=== PATIENT | male | born 1980 | race Caucasian/White ===

== ENCOUNTER 2020-05-07 08:58 | Emergency (ER) | payer OTHER, SELFPAY ==
[2020-05-07 09:00] VITALS: BP 161/114; PULSE 98; RESP 14; TEMP 36.6; O2SAT 99; BMI 33.3
--- NOTE | 2020-05-07 09:26 | EKG12_ITS ---
Test Reason : [facility] Blood Pressure : / mmHG Vent. Rate : 081 BPM Atrial Rate : 081 BPM P-R Int : 168 ms QRS Dur : 092 ms QT Int : 348 ms P-R-T Axes : 047 038 028 degrees QTc Int : 404 ms Normal sinus rhythm Normal ECG Confirmed by BRIGHT KEYES, CAMRYN ([id number]), managing editor JEFF MENDOZA ([id number]) on 05/08/2020 1:38:15 PM Referred By: Confirmed By:CAMRYN NOVOA MD
--- NOTE | 2020-05-07 09:26 | ED.VIS.GEN ---
History of Present Illness Chief Complaint: Suicidal Informant: Patient Narrative: 39-year-old male presenting with suicidal ideation. Patient is a [place] [employer] . Patient states for the past 5 to 6 years he has been battling with his thoughts and of how to improve himself in his situation. He has had prior methamphetamine addiction that was strong for 2 years but over the past year has been intermittent. Last used 1 month ago. He is on through several break ups the last break-up he had a child with the individual. He is struggling with the role of a father. [facility] They eventually convinced him to come to the hospital. He is worried about being labeled. He states he had a bad childhood and feels that he has been running from every situation. He does not know where to start. Past Medical History - Allergies and Home Meds Allergies/Adverse Reactions: Allergies No Known Allergies Allergy (Verified 05/07/20 09:00) Surgical History: noncontributory Lives: Friends Smoking Status: Current every day smoker Alcohol: Occasional Drugs: - - History of methamphetamine use Review of Systems General: Denies: Chills, Fever, Sweats Eyes: Denies: Visual changes - bilaterally, Diplopia ENT: Denies: Rhinorrhea, Sore throat Cardiovascular: Denies: Chest pain, Palpitations Respiratory: Denies: Dyspnea, Cough, Dyspnea on exertion Gastrointestinal: Denies: Abdominal pain, Nausea, Vomiting, Diarrhea, Melena, Hematochezia Genitourinary: Denies: Dysuria, Hematuria, Frequency Musculoskeletal: Denies: Back pain, Extremity Pain Skin: Denies: Rash, Wounds Neurological: Denies: Headache, Weakness, Numbness Psych: Reports: Depression, Anxiety, Suicidal thoughts, Suicidal ideations Physical Exam Vital Signs/Narrative: Vital Signs Temp Pulse Resp BP Pulse Ox 05/07/20 09:00 97.8 F 98 14 161/114 H 99 Inital Vital Signs reviewed: Yes General: Well nourished, Well developed, No Acute Distress Head: Normocephalic, Atraumatic Eyes: Perrl, EOMI ENT: Moist mucous membranes, No rhinorrhea Neck: Supple, Nontender Cardiovascular: Regular rate, Regular rhythm, No murmurs Respiratory: No distress, CTA bilaterally, Chest nontender Abdomen: Soft, Nontender, Nondistended, Normal bowel sounds Back: Nontender, Normal Inspection Extremities: Nontender, No edema Skin: Normal color, No rash Neurological: Alert, Oriented x3, Cranial nerves II-XII grossly intact, Normal Strength, Normal Sensation Psychological: Depressed, Tearful, - - Patient endorses suicidal thoughts and ideation Diagnostic/Tx/Re-eval Laboratory Last Values WBC 11.0 K/mm3 (4.4-11.0) 05/07/20 09:46 RBC 5.65 M/mm3 (4.6-6.2) 05/07/20 09:46 Hgb 16.6 g/dL (13.0-16.5) H 05/07/20 09:46 Hct 48.7 % (40-54) 05/07/20 09:46 MCV 86.2 fL (80-94) 05/07/20 09:46 MCH 29.4 pg (27.0-32.0) 05/07/20 09:46 MCHC 34.1 g/dL (32-36) 05/07/20 09:46 RDW Std Deviation 40.5 fl (35.1-43.9) 05/07/20 09:46 RDW Coeff of Derik 13.1 % (11.6-14.6) 05/07/20 09:46 Plt Count 220 K/mm3 (150-450) 05/07/20 09:46 MPV 10.0 fl (6.2-12.0) 05/07/20 09:46 Immature Gran % (Auto) 0.500 % (0.0-0.9) 05/07/20 09:46 Neut % (Auto) 76.7 % (47-70) H 05/07/20 09:46 Lymph % (Auto) 16.3 % (19-41) L 05/07/20 09:46 [place] % (Auto) 5.0 % (0-10) 05/07/20 09:46 Eos % (Auto) 1.2 % (0-5) 05/07/20 09:46 Baso % (Auto) 0.3 % (0-1) 05/07/20 09:46 Absolute Neuts (auto) 8.4 X10^3/uL (2.0-7.7) H 05/07/20 09:46 Absolute Lymphs (auto) 1.78 X10^3/uL (0.83-4.51) 05/07/20 09:46 Nucleated RBC % 0 % (0-5) 05/07/20 09:46 Sodium 140 mmol/L (136-145) 05/07/20 09:46 Potassium 3.7 mmol/L (3.5-5.1) 05/07/20 09:46 Chloride 107 mmol/L (98-107) 05/07/20 09:46 Carbon Dioxide 24.0 mmol/L (21.0-32.0) 05/07/20 09:46 Anion Gap 9 (5-15) 05/07/20 09:46 BUN 13 mg/dL (7-18) 05/07/20 09:46 Creatinine 1.00 mg/dL (0.70-1.30) 05/07/20 09:46 Estim Creat Clear Calc 97.85 ml/min 05/07/20 09:46 Est GFR (MDRD) Af Amer 108 mL/min (>60) 05/07/20 09:46 Est GFR (MDRD) Non-Af 89 mL/min (>60) 05/07/20 09:46 BUN/Creatinine Ratio 13.0 RATIO (10-20) 05/07/20 09:46 Glucose 89 mg/dL (74-106) 05/07/20 09:46 Calcium 9.9 mg/dL (8.5-10.1) 05/07/20 09:46 Total Bilirubin 0.90 mg/dL (0.20-1.00) 05/07/20 09:46 AST 27 U/L (15-37) 05/07/20 09:46 ALT 46 U/L (16-61) 05/07/20 09:46 Alkaline Phosphatase 87 U/L (45-117) 05/07/20 09:46 Total Protein 8.6 g/dL (6.4-8.2) H 05/07/20 09:46 Albumin 4.3 g/dL (3.2-5.0) 05/07/20 09:46 Globulin 4.3 g/dL (2.2-4.2) H 05/07/20 09:46 Albumin/Globulin Ratio 1.0 RATIO (0.9-2.4) 05/07/20 09:46 TSH 0.85 uIU/mL (0.358-3.74) 05/07/20 09:46 Urine Opiates Screen NEGATIVE (< 300 ng/mL) 05/07/20 11:28 Urine Methadone Screen NEGATIVE (< 300 ng/mL) 05/07/20 11:28 Ur Barbiturates Screen NEGATIVE (< 200 ng/mL) 05/07/20 11:28 Ur Phencyclidine Scrn NEGATIVE (< 25 ng/mL) 05/07/20 11:28 Ur Amphetamines Screen NEGATIVE (<1000 ng/mL) 05/07/20 11:28 U Methamphetamin-MDMA NEGATIVE (< 500 ng/mL) 05/07/20 11:28 U Benzodiazepines Scrn NEGATIVE (< 200 ng/mL) 05/07/20 11:28 Urine Cocaine Screen NEGATIVE (< 300 ng/mL) 05/07/20 11:28 U Cannabinoids Screen POSITIVE (< 50 ng/mL) H 05/07/20 11:28 Ur Drug Screen Comment 05/07/20 11:28 Ethyl Alcohol < 3.0 mg/dL 05/07/20 09:46 - Medical Decision Making He is Covid negative. He is medically cleared. I had social work visit with the patient and they are also in agreement that he would benefit from psychiatric admission. I have filled out a pink slip. We will work towards finding placement. ED Disposition - Plan for ED Patient: Disposition: Psychiatric Hospital or Unit Diagnosis: Depression, Suicidal ideation
[2020-05-07 09:55] LABS: Absolute Lymphocyte Count 1.78 X10^3/uL (0.83-4.51); Absolute Neutrophil Count 8.4 X10^3/uL (2.0-7.7); Basophil# 0.03 X10^3/uL; Basophil% 0.3 % (0-1); Eosinophil# 0.13 X10^3/uL; Eosinophils% 1.2 % (0-5); Hematocrit 48.7 % (40-54); Hemoglobin 16.6 g/dL (13.0-16.5); Lymphocyte # 1.78 X10^3/ul (4.0); Lymphocyte % 16.3 % (19-41); Mean Corp Hgb Conc 34.1 g/dL (32-36); Mean Corpuscular Hgb 29.4 pg (27.0-32.0); Mean Corpuscular Volume 86.2 fL (80-94); Monocyte# 0.55 X10^3/uL; NRBC Flagged by Analyzer 0 % (0-5); Neutrophil # 8.41 X10^3/uL (2.7-7.7); Neutrophil % 76.7 % (47-70); Platelet Count 220 K/mm3 (150-450); RBC Distribution Width CV 13.1 % (11.6-14.6); RBC Distribution Width SD 40.5 fl (35.1-43.9); Red Blood Count 5.65 M/mm3 (4.6-6.2)
[2020-05-07 10:18] LABS: AST(SGOT) 27 U/L (15-37); Alanine Aminotransfer ALT/SGPT 46 U/L (16-61); Albumin, Serum 4.3 g/dL (3.2-5.0); Alkaline Phosphatase 87 U/L (45-117); Anion Gap 9 (5-15); BUN 13 mg/dL (7-18); Calcium,Total 9.9 mg/dL (8.5-10.1); Chloride 107 mmol/L (98-107); EST Glomerular Filtration Rate 89 mL/min (>60); Est Glom Filt Rate - Afr Amer 108 mL/min (>60); Estimated Creatinine Clearance 97.85 ml/min; Globulin 4.3 g/dL (2.2-4.2); Glucose 89 mg/dL (74-106); Potassium 3.7 mmol/L (3.5-5.1); Protein, Total 8.6 g/dL (6.4-8.2); Sodium Level 140 mmol/L (136-145); Thyroid Stim Hormone (TSH) 0.85 uIU/mL (0.358-3.74)
[2020-05-07 10:38] LABS: Alcohol, Blood (Medical)-Serum < 3.0 mg/dL
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
[2020-05-07 11:29] VITALS: BP 129/74; PULSE 62; RESP 15; O2SAT 99
[2020-05-07 12:04] LABS: Amphetamine Urine VISTA NEGATIVE (<1000 ng/mL); Barbiturate Urine VISTA NEGATIVE (< 200 ng/mL); Benzodiazepine Urine VISTA NEGATIVE (< 200 ng/mL); Cocaine Urine VISTA NEGATIVE (< 300 ng/mL); Ecstacy Urine VISTA NEGATIVE (< 500 ng/mL); Methadone Urine VISTA NEGATIVE (< 300 ng/mL); PCP Urine VISTA NEGATIVE (< 25 ng/mL); THC Urine VISTA POSITIVE (< 50 ng/mL); Vista UDS pH Range 5
--- NOTE | 2020-05-07 12:09 | CM.ED ---
Social Work Telephone call to [facility]. Referral made. Clinical information faxed. Pending review. Sami Khoury MSW, IRVIN
--- NOTE | 2020-05-07 12:44 | CM.ED ---
Social Work Telephone call from Kayla Ledezma. Inquiring about if [facility] ([place] had any openings as there has to be no options under [place] in order for [facility] to accept. This social services coordinator had attempted to call [facility] with no answer. This social services coordinator will continue to attempt contact with [facility] to inquire about bed openings. Telephone call to [facility], voicemail left for bed control. Sami MAN, WILLIAMS
--- NOTE | 2020-05-07 13:20 | CM.ED ---
Social Work Multiple calls to [facility], no responses and unable to get in contact with person to clarify if there is any open beds. Telephone call to [facility] to inquire if there is a way that [facility] is able to check for bed openings. Kayla reports to have [facility] and to have confirmed that [facility] are no open beds in the inpatient psych unit currently. Kayla reports plan for patient to be transferred and accepted to [facility] and will call this health social work professor back with admission information. Sami MAN, IRVIN
--- NOTE | 2020-05-07 14:10 | CM.ED ---
Social Work Telephone call from Kayla Ledezma. Patient has a 10% co-pay. This social scientist updated patient on co-pay status. Patient inquiring if there would be a facility that is 100% covered. This social scientist unsure of this request but reported to patient to be able to explore this option. When this social scientist looked up patient insurance online in-network providers [facility] is an in-network facility. Patient requesting for referral to be made to [facility]. Telephone call to [facility], intake. Referral made. Clinical information faxed. Pending review. Sami Khoury MSW, IRVIN
[2020-05-07 15:00] VITALS: BP 142/83; PULSE 87; RESP 16; O2SAT 99
--- NOTE | 2020-05-07 16:16 | CM.ED ---
Social Work Telephone call from Rafael HernandezMary. Patient has been accepted by Dr. Ac to the [facility]. Nurse to call report to [phone]. [facility] faxed to [facility]. Patient and medical team updated. Sami MAN, IRVIN
[2020-05-07 17:00] VITALS: RESP 16
[2020-05-07 18:00] VITALS: BP 145/86; PULSE 90; RESP 16; TEMP 36.2; O2SAT 99
[2020-05-07 18:33] VITALS: BP 145/86; PULSE 90; RESP 16; TEMP 36.2; O2SAT 99
== END 2020-05-07 18:39 ==
PROVIDERS: Emergency Provider Emergency Medicine
DX: R45.851 Suicidal ideations (principal); F32.9 Major depressive disorder, single episode, unspecified; F17.200 Nicotine dependence, unspecified, uncomplicated; F15.90 Other stimulant use, unspecified, uncomplicated
CPT/HCPCS: 80053; 80307; 82077; 84443; 85025; 87426; 93005; 99285

== ENCOUNTER 2020-05-19 14:59 | Emergency (ER) | payer OTHER, SELFPAY ==
[2020-05-19 15:00] VITALS: BP 159/94; PULSE 94; RESP 16; TEMP 36.1; O2SAT 100; BMI 34.2
--- NOTE | 2020-05-19 15:20 | EKG12_ITS ---
Test Reason : CHEST PAIN Blood Pressure : / mmHG Vent. Rate : 097 BPM Atrial Rate : 097 BPM P-R Int : 162 ms QRS Dur : 090 ms QT Int : 326 ms P-R-T Axes : 033 045 040 degrees QTc Int : 414 ms Normal sinus rhythm Nonspecific ST abnormality Abnormal ECG Confirmed by ROXANNE KEYES, BETSY ([id number]), business editor JEFF MENDOZA ([id number]) on 05/23/2020 1:25:41 PM Referred By: DENISE Confirmed By:BETSY OLIVEIRA MD
--- NOTE | 2020-05-19 15:23 | ED.DCSUM_ITS ---
History of Present Illness Chief Complaint: Chest Pain Informant: Patient Onset: Days - 3 days Context: Gradual Onset Timing: Waxes and wanes Current Severity: Mild Maximum Severity: Moderate Narrative: Patient presents secondary to a burning-like chest pain on the center of his chest with occasional spasms. He states symptoms been ongoing for the past 2 to 3 days. He thinks it may be related to recently starting multiple psychiatric medicines including Abilify, Klonopin, and clonidine. He did try taking some Tums yesterday thinking it might just be reflux but did not note significant improvement. He does not feel short of breath. He denies any recent change in activity tolerance. - Past Medical History (1) Anxiety and depression Status: Chronic (2) Hypertension Status: Chronic Past Medical History - Allergies and Home Meds Allergies/Adverse Reactions: Allergies No Known Allergies Allergy (Verified 05/19/20 15:00) Primary Care Physician: Care Physician,No Primary [Primary Care Provider] - Prior records reviewed: Yes Surgical History: noncontributory Smoking Status: Never smoker Drugs: Marijuana Review of Systems General: Denies: Chills, Fever Eyes: Denies: Visual changes - bilaterally ENT: Denies: Bilateral ear pain Cardiovascular: Reports: Chest pain. Denies: Palpitations, Heart racing Respiratory: Denies: Dyspnea, Cough Gastrointestinal: Denies: Abdominal pain, Nausea, Vomiting, Diarrhea Genitourinary: Denies: Dysuria Musculoskeletal: Denies: Myalgias, Swelling, Extremity Pain Skin: Denies: Rash Neurological: Denies: Headache Hematologic: Denies: Easy bruising, Easy bleeding Allergy: Denies: Uticaria Physical Exam Vital Signs/Narrative: Vital Signs Temp Pulse Resp BP Pulse Ox 05/19/20 15:00 97 F L 94 16 159/94 H 100 Inital Vital Signs reviewed: Yes General: Well nourished, Well developed Head: Normocephalic ENT: Moist mucous membranes Neck: Supple Cardiovascular: Regular rate, Regular rhythm Respiratory: No distress, CTA bilaterally Abdomen: Soft, Normal bowel sounds, Tender - Epigastric tenderness to palpation. Extremities: Nontender Skin: Normal color Neurological: Alert, Oriented x3 Psychological: Normal affect Diagnostic/Tx/Re-eval Chest X-Ray - ED: 1 View, Read by ED Physician, Normal, Heart, Lungs, Mediastinum 05/19/20 15:38 Chest 1 View (Portable) [RAD] Stat Laboratory Results 05/19/20 05/19/20 15:33 15:33 WBC 10.6 RBC 5.06 Hgb 15.0 Hct 44.5 MCV 87.9 MCH 29.6 MCHC 33.7 RDW Std Deviation 42.4 RDW Coeff of Derik 13.2 Plt Count 175 MPV 10.3 Immature Gran % (Auto) 0.500 Neut % (Auto) 73.1 H Lymph % (Auto) 18.1 L [place] % (Auto) 5.6 Eos % (Auto) 2.6 Baso % (Auto) 0.1 Absolute Neuts (auto) 7.7 Absolute Lymphs (auto) 1.91 Nucleated RBC % 0 Sodium 139 Potassium 3.6 Chloride 105 Carbon Dioxide 27.0 Anion Gap 7 BUN 13 Creatinine 1.06 Estim Creat Clear Calc 92.31 Est GFR (MDRD) Af Amer 101 Est GFR (MDRD) Non-Af 83 BUN/Creatinine Ratio 12.3 Glucose 108 H Calcium 8.7 Total Bilirubin 0.50 Direct Bilirubin 0.08 AST 19 ALT 48 Alkaline Phosphatase 85 Troponin I < 0.015 Total Protein 7.1 Albumin 3.5 Globulin 3.6 Lipase 98 - EKG Initial EKG Interpretation: Sinus Rhythm - Sinus at [address] change. - Medical Decision Making Patient was given Protonix and Bentyl here. On repeat evaluation he is resting comfortably. He states he continues to get spasms in the center of his chest every 10 minutes or so. He did have one episode while we were talking about his test results with no electrical change noted on the monitor. I do believe this is esophageal spasm secondary to reflux. Patient be given a prescription for Prilosec as well as Bentyl. He will stop his psychiatric medications at this time and call his doctor tomorrow. If he is unable to reach his doctor at the [place] he will also be given the phone number for counseling center here locally. ED Disposition - Plan for ED Patient: Disposition: Home or Assisted Living Diagnosis: Atypical chest pain Instructions: ED Chest Pain, Uncertain Cause, ED GERD (Adult) Prescriptions: Dicyclomine HCl [Bentyl] 20 mg PO TIDAC PRN #20 cap PRN Reason: Spasms Transmission Status: Pending to [facility]/pharmacy #[id number] Omeprazole [Prilosec] 20 mg PO DAILY #30 cap Transmission Status: Pending to [facility]/pharmacy #[id number] Referrals: Counseling,Center [GROUP OF PHYSICIANS] - As soon as possible
[2020-05-19 15:24] VITALS: PULSE 103; RESP 18; O2SAT 99
--- NOTE | 2020-05-19 15:38 | RAD_ITS ---
STUDY: X-RAY CHEST REASON FOR EXAM: Male, 39 years old. chest pain x2 days. TECHNIQUE: Single frontal view of the chest. COMPARISON: None. FINDINGS: The lungs are clear and expanded. There is no demonstrated pleural abnormality. Normal size heart. Normal mediastinum and red. Normal visualized pulmonary arteries. Normal visualized aortic arch and descending thoracic aorta. Normal visualized thoracic spine. Normal visualized ribs, clavicles, and shoulders. There is no demonstrated abnormality of the visualized soft tissue structures of the upper abdomen. RAD/Chest 1 View (Portable) IMPRESSION: Normal x-ray examination of the chest. Electronically Signed: Hussain Escobar MD at 16:56 EST , Service support ,
[2020-05-19 15:41] LABS: Absolute Lymphocyte Count 1.91 X10^3/uL (0.83-4.51); Absolute Neutrophil Count 7.7 X10^3/uL (2.0-7.7); Basophil# 0.01 X10^3/uL; Basophil% 0.1 % (0-1); Eosinophil# 0.27 X10^3/uL; Eosinophils% 2.6 % (0-5); Hematocrit 44.5 % (40-54); Lymphocyte # 1.91 X10^3/ul (4.0); Lymphocyte % 18.1 % (19-41); Mean Corp Hgb Conc 33.7 g/dL (32-36); Mean Corpuscular Hgb 29.6 pg (27.0-32.0); Mean Corpuscular Volume 87.9 fL (80-94); Mean Platelet Vol. 10.3 fl (6.2-12.0); Monocyte# 0.59 X10^3/uL; Monocyte% 5.6 % (0-10); NRBC Flagged by Analyzer 0 % (0-5); Neutrophil # 7.74 X10^3/uL (2.7-7.7); Neutrophil % 73.1 % (47-70); Platelet Count 175 K/mm3 (150-450); RBC Distribution Width CV 13.2 % (11.6-14.6); RBC Distribution Width SD 42.4 fl (35.1-43.9); Red Blood Count 5.06 M/mm3 (4.6-6.2); White Blood Count 10.6 K/mm3 (4.4-11.0)
[2020-05-19] MEDS: Dicyclomine 10 MG Capsule 20 MG PO (15:48)
[2020-05-19 16:04] LABS: AST(SGOT) 19 U/L (15-37); Alanine Aminotransfer ALT/SGPT 48 U/L (16-61); Albumin, Serum 3.5 g/dL (3.2-5.0); Alkaline Phosphatase 85 U/L (45-117); Anion Gap 7 (5-15); BUN 13 mg/dL (7-18); BUN/Creat Ratio 12.3 RATIO (10-20); Bilirubin, Direct 0.08 mg/dL (0.00-0.30); Calcium,Total 8.7 mg/dL (8.5-10.1); Chloride 105 mmol/L (98-107); Creatinine, Serum 1.06 mg/dL (0.70-1.30); EST Glomerular Filtration Rate 83 mL/min (>60); Est Glom Filt Rate - Afr Amer 101 mL/min (>60); Estimated Creatinine Clearance 92.31 ml/min; Globulin 3.6 g/dL (2.2-4.2); Glucose 108 mg/dL (74-106); Lipase 98 U/L (73-393); Potassium 3.6 mmol/L (3.5-5.1); Protein, Total 7.1 g/dL (6.4-8.2); Sodium Level 139 mmol/L (136-145)
[2020-05-19 16:11] VITALS: BP 127/85; PULSE 87; RESP 20; O2SAT 97
[2020-05-19 16:44] VITALS: BP 135/94; PULSE 85; RESP 20; O2SAT 95
== END 2020-05-19 16:45 | disposition home or self-care (01) ==
PROVIDERS: Emergency Provider Emergency Medicine
DX: R07.89 Other chest pain (principal); I10 Essential (primary) hypertension; F32.9 Major depressive disorder, single episode, unspecified; F41.9 Anxiety disorder, unspecified
CPT/HCPCS: 71045; 80048; 80076; 83690; 84484; 85025; 93005; 99284; J7050; A4216